=== PATIENT | female | born 2000 | race Caucasian/White ===

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

== ENCOUNTER 2020-04-19 16:25 | Emergency (ER) | payer BC ==
[2020-04-19 16:29] VITALS: BP 144/91; PULSE 68; RESP 18; TEMP 98.4
[2020-04-19] MEDS ORDERED: LIDOCAINE 1% INJ 10MG/ML (20 ML MDV) SQ ONE (17:05)
[2020-04-19] MEDS ORDERED: BACITRACIN OINT 1 EACH PACKET TOPICAL ONE (17:05)
--- NOTE | 2020-04-19 18:05 | ED ---
Wound/Laceration HPI - General Chief Complaint: Wound/Laceration Stated Complaint: Fall, Facial Injury Time Seen by Provider: 04/19/20 16:38 Source: patient, family Limitations: no limitations - History of Present Illness Initial Comments: Patient is a 19-year-old female presenting to emergency Department with complaints of a laceration on her chin. Patient states about an hour prior to arrival she was hiking with her family when she tripped and fell forward landing mostly on her chin. Patient believes a branch could have poked through her lower chin. Patient has a laceration just below her bottom lip. She does admit to some pain around her chin but is able to open close without difficulty. She does have a mild headache as well but no changes in vision, no loss of consciousness. She denies any nausea or vomiting, she has drank some water since the fall and feels okay. Patient denies being on blood thinners. Patient is up-to-date with her tetanus vaccine. There are no further complaints at this time. - Related Data Home Medications Medication Instructions Recorded Confirmed Ibuprofen 400 mg PO Q8H PRN 04/19/20 04/19/20 Allergies Allergy/AdvReac Type Severity Reaction Status Date / Time No Known Allergies Allergy Verified 04/19/20 17:24 Review of Systems ROS Statement: Those systems with pertinent positive or pertinent negative responses have been documented in the HPI. ROS Other: All systems not noted in ROS Statement are negative. Past Medical History Past Medical History: No Reported History History of Any Multi-Drug Resistant Organisms: None Reported Past Surgical History: No Surgical Hx Reported Past Psychological History: No Psychological Hx Reported Smoking Status: Never smoker Past Alcohol Use History: None Reported Past Drug Use History: None Reported General Exam - General Exam Comments Initial Comments: GENERAL: Patient is well-developed and well-nourished. Patient is nontoxic and in no acute distress. HEAD: Atraumatic, normocephalic. She has no hematomas. No signs of basal skull fracture. EYES: Pupils equal round and reactive to light, extraocular movements intact, sclera anicteric, conjunctiva are normal. Eyelids were unremarkable. ENT: TMs normal, nares patent, oropharynx clear without exudates. Moist mucous membranes. Patient has some mild swelling of her lower lip, there is a small superficial laceration to the inside of bottom lip, approximately 0.5 cm in length. This does not require any suturing. NECK: Normal range of motion, supple without lymphadenopathy or JVD. No midline tenderness. LUNGS: Unlabored respirations. Breath sounds clear to auscultation bilaterally and equal. No wheezes rales or rhonchi. HEART: Regular rate and rhythm without murmurs, rubs or gallops. ABDOMEN: Soft, nontender, normoactive bowel sounds. No guarding, no rebound. No masses appreciated. : Deferred MUSCULOSKELETAL: Normal extremities with adequate strength and normal range of motion, no pitting or edema. No clubbing or cyanosis. NEUROLOGICAL: Patient is alert and oriented x 3. Motor and sensory are also intact. Cranial nerves II through XII grossly intact. Symmetrical smile. Normal speech, normal gait. PSYCH: Normal mood, normal affect. SKIN: Warm, Dry, normal turgor, no rashes. Patient has a 1.5 cm laceration just below her bottom lip, no active bleeding. Limitations: no limitations Course Vital Signs 04/19/20 16:26 Temperature 98.4 F Pulse Rate 68 Respiratory 18 Rate Blood Pressure 144/91 O2 Sat by Pulse 97 Oximetry Procedures - Laceration Laceration #1 Consent Obtained: verbal consent Indication: laceration Site: face (Below lower lip) Size (cm): 0 (1.5cm) Description: linear Depth: simple, single layer Anesthetic Used: lidocaine 1% Anesthesia Technique: local infiltration Amount (mls): 3 Pre-repair: irrigated extensively Type of Sutures: nylon Size of Sutures: 5-0 Number of Sutures: 3 Technique: simple, interrupted Patient Tolerated Procedure: well Medical Decision Making - Medical Decision Making Patient is a 19-year-old female presenting with a laceration below her lower lip after she fell forward about 1 hour earlier to arrival. Her exam reveals a 1.5 cm laceration just below the lower lip, she also has a small superficial laceration inside of her lower lip, 0.5 cm, this does not require any suturing. The rest the patient's exam is unremarkable, she had some mild bruising to the chin, no acute neuro deficits. Patient's wound was cleaned, closed with 3, 5-0 sutures. Patient tolerated procedure very well. We also discussed the possibility of having a mild concussion from hitting the ground. She can take Tylenol for any headaches or discomfort from her laceration. She can have stitches removed in 7-10 days. Patient is in agreement with this plan of care. She stable for discharge. Return parameters were discussed with the patient she verbalized understanding. Disposition Clinical Impression: Laceration of chin Disposition: HOME SELF-CARE Condition: Stable Instructions (If sedation given, give patient instructions): Care For Your Stitches (ED) Additional Instructions: Please return to the Emergency Department if symptoms worsen or any other concerns. Keep area clean and dry. You may shower as normal. Apply topical antibiotic once a day. Sutures need to be removed in 7-10 days. Is patient prescribed a controlled substance at d/c from ED?: No Referrals: None,Stated [Primary Care Provider] - 1-2 days
== END 2020-04-19 18:06 | disposition home or self-care (01) ==
LOC: EC 16:25
DX: S01.81XA Laceration without foreign body of other part of head, initial encounter (principal); S01.511A Laceration without foreign body of lip, initial encounter; W01.198A Fall on same level from slipping, tripping and stumbling with subsequent striking against other object, initial encounter; Y93.01 Activity, walking, marching and hiking
CPT/HCPCS: 99282; 12011; J2001

== ENCOUNTER → 2024-02-03 | Outpatient (CLI) | payer BC ==
[2024-02-04 14:16] LABS: Lamb's Quarter IgE <0.10 kU/L (<0.10); Lamb's Quarter IgE Class CLASS 0
== END | disposition home or self-care (01) ==
LOC: LABWHC1 11:23
PROVIDERS: ATTEND Otolaryngology
CPT/HCPCS: 36415; 86003